=== PATIENT | female | born 1995 | race African-American/Black ===

== ENCOUNTER 2018-02-02 17:33 | Emergency (ER) | payer MEDICAID, OTHER ==
[~2018-02-02] VITALS: Ht 170.2 cm; Wt 55.0 kg
[2018-02-02 23:24] LABS: CLARITY URINE TURBID (CLEAR); COLOR URINE YELLOW (YELLOW); KETONES URINE TRACE (NEGATIVE); LEUKOCYTE ESTERASE URINE 3+ (NEGATIVE); NITRITE URINE NEGATIVE (NEGATIVE); OCCULT BLOOD URINE NEGATIVE (NEGATIVE); PH URINE 6.5 (4.5-8.0); PROTEIN URINE NEGATIVE (NEGATIVE); SPECIFIC GRAVITY URINE 1.022 (1.005-1.030)
[2018-02-02 23:34] VITALS: BP 121/81
== END 2018-02-03 | disposition home or self-care (01) ==
LOC: ER 17:33
DX: T78.40XA Allergy, unspecified, initial encounter (principal); L30.9 Dermatitis, unspecified; N39.0 Urinary tract infection, site not specified; M54.5 Low back pain; M41.9 Scoliosis, unspecified
CPT/HCPCS: 81003; 81025; 87086; 99284

== ENCOUNTER 2019-08-12 19:33 | Emergency (ER) | payer MEDICAID, OTHER ==
[~2019-08-12] VITALS: Ht 172.7 cm; Wt 58.0 kg
[2019-08-12] MEDS ORDERED: IBUPROFEN 800MG TABLET PO ONE (21:00)
[2019-08-12] MEDS ORDERED: ACETAMINOPHEN 500MG TABLET PO ONE (21:00)
[2019-08-12] MEDS ORDERED: KETOROLAC 60MG/2ML VIAL IM SCH (21:45)
[2019-08-12 23:12] VITALS: BP 121/78
== END 2019-08-12 23:16 | disposition home or self-care (01) ==
LOC: ER 19:33
DX: S43.491A Other sprain of right shoulder joint, initial encounter (principal); S20.211A Contusion of right front wall of thorax, initial encounter; F17.200 Nicotine dependence, unspecified, uncomplicated; D64.9 Anemia, unspecified; X58.XXXA Exposure to other specified factors, initial encounter; Y93.89 Activity, other specified; Y92.89 Other specified places as the place of occurrence of the external cause; Y99.8 Other external cause status
CPT/HCPCS: 71046; 73030; 81025; 96372; 99283; J1885

== ENCOUNTER 2024-01-24 20:58 | Emergency (ER) | payer MEDICAID ==
[~2024-01-24] VITALS: Ht 170.2 cm; Wt 61.0 kg
[2024-01-24 21:01] VITALS: BP 120/83; PULSE 86; RESP 20; TEMP 98.5; O2SAT 98
[2024-01-24 21:59] LABS: BASOPHILS % 0.3 % (0.0-2.0); EOSINOPHILS % 0.2 % (0.0-5.0); HEMATOCRIT. 38.8 % (36.0-48.0); HEMOGLOBIN. 12.8 g/dL (12.0-16.0); LYMPHOCYTES % 22.6 % (20.0-50.0); MEAN CORPUSCULAR HEMOGLOBIN 30.4 pg (28.0-32.0); MEAN CORPUSCULAR HGB CONC 33.1 g/dL (31.0-37.0); MEAN CORPUSCULAR VOLUME 91.9 fL (81.0-99.0); MEAN PLATELET VOLUME 7.9 fl (7.4-10.4); MONOCYTES % 12.1 % (2.0-8.0); NEUTROPHILS % 64.8 % (40.0-76.0); PLATELET 262 x1000/uL (130-400); RED BLOOD CELL COUNT 4.22 mill/uL (4.2-5.4); RED CELL DISTRIBUTION WIDTH 13.5 % (11.6-14.6); WHITE BLOOD COUNT 9.3 x1000/uL (4.5-11.0)
[2024-01-24 22:14] LABS: HCG SCREEN NEGATIVE
[2024-01-24 22:20] LABS: ALANINE AMINOTRANSFERASE 8 IU/L (10-49); ALBUMIN 4.3 g/dL (3.2-4.8); ASPARTATE AMINOTRANSFERASE 21 IU/L (<34); BILIRUBIN TOTAL 0.7 mg/dL (0.1-1.0); CARBON DIOXIDE 25 mEq/L (21-32); CHLORIDE 107 mEq/L (98-107); CREATININE 0.8 mg/dL (0.6-1.0); GLUCOSE 92 mg/dL (70-105); POTASSIUM 3.3 mEq/L (3.5-5.1); SODIUM 139 mEq/L (136-145); UREA NITROGEN BLOOD 5 mg/dL (9-23)
[2024-01-24 22:21] LABS: TROPONIN I HIGH SENSITIVITY < 4 ng/L (3.0-34)
[2024-01-25] MEDS: KETOROLAC 30MG/ML VIAL IM NR (03:09)
[2024-01-25] MEDS: ACETAMINOPHEN 325MG TABLET PO ONE (03:10)
[2024-01-25] MEDS ORDERED: BACL-141 MT (03:18)
[2024-01-25] MEDS ORDERED: ACET-2708 MT (03:18)
== END 2024-01-25 03:44 | disposition home or self-care (01) ==
LOC: ER 20:58
DX: R07.89 Other chest pain (principal); F17.200 Nicotine dependence, unspecified, uncomplicated; D64.9 Anemia, unspecified
CPT/HCPCS: 80053; 84703; 85025; 84484; 36415; 71045; 93005; 99285; 71100; 96372; J1885; Z7610